=== PATIENT | female | born 1965 | race Caucasian/White ===

== ENCOUNTER 2018-08-20 07:54 | Emergency (ER) | payer BC, OTHER ==
[~2018-08-20] VITALS: Ht 162.6 cm; Wt 59.0 kg
[2018-08-20] MEDS ORDERED: SERTRALINE HCL25 M1 PO (09:45)
[2018-08-20] MEDS ORDERED: PROZAC40 MG PO (09:45)
[2018-08-20] MEDS ORDERED: BUTALB-APAP-CA1 EACH PO (10:14)
[2018-08-20 10:37] VITALS: BP 96/65
== END 2018-08-20 10:45 | disposition home or self-care (01) ==
LOC: ER 07:54
DX: R51 Headache (principal); R11.10 Vomiting, unspecified